=== PATIENT | male | born 1930 | race Caucasian/White ===

== ENCOUNTER 2019-02-16 18:55 | Inpatient (IN) | payer MEDICARE, MEDICAID ==
[2019-02-16] MEDS ORDERED: Magnesium Hydroxide (MOM) 30 mL UDC PO PRN (21:33)
[2019-02-17] MEDS: INSULIN LISPRO SLIDING SCALE 100 UNITS/ML UNIT SUBQ SCH ×4 (06:45→20:24)
[2019-02-17] MEDS: Pantoprazole 40 mg EC Tab PO SCH (08:55)
[2019-02-17] MEDS: Multivitamin w/ Minerals Tab PO SCH (08:55)
[2019-02-17] MEDS: Ferrous Sulfate 325 MG TAB PO SCH ×2 (08:55→17:17)
[2019-02-17] MEDS: Calcium Carb/Vit D 500 mg/200 U Tab PO SCH (08:56)
[2019-02-17] MEDS ORDERED: Epoetin Alfa 20000 Units/mL Vial SUBQ SCH (15:00)
--- NOTE | 2019-02-17 20:55 | Consultation ---
DATE OF CONSULTATION: 02/17/2019 INTERNAL MEDICINE CONSULTATION HISTORY OF PRESENT ILLNESS: An 88-year-old male seen at [facility]. The patient is a patient of mine from [facility]. CURRENT MEDICAL PROBLEMS: Include diabetes mellitus, diabetic angiopathy, neuropathy, nephropathy, hypertension, coronary artery disease non-pneumatic, aortic stenosis, enlarged prostate, peptic ulcer disease, gastritis, arthritis. SOCIAL HISTORY: No history of smoking or alcohol abuse. FAMILY HISTORY: Not available. REVIEW OF SYSTEMS: The patient has no chest pain, no shortness of breath, no nausea, no vomiting. Blood sugars are fairly stable. PHYSICAL EXAMINATION: VITAL SIGNS: Stable. LUNGS: Clear. HEART: First and second present. ABDOMEN: Soft. Bowel sounds present. EXTREMITIES: Show arthritis. NEUROLOGIC: The patient has advanced psychosis and dementia. Psych consult reviewed. LABORATORY DATA: Reviewed. MEDICINES: Reviewed. PLAN: Continue current medical management. [facility]# [id number]
[2019-02-17] MEDS: Atorvastatin Calcium 10 MG TAB PO SCH (21:29)
[2019-02-18] MEDS: INSULIN LISPRO SLIDING SCALE 100 UNITS/ML UNIT SUBQ SCH ×4 (07:01→21:00)
[2019-02-18] MEDS: Calcium Carb/Vit D 500 mg/200 U Tab PO SCH (08:43)
[2019-02-18] MEDS: Ferrous Sulfate 325 MG TAB PO SCH ×2 (08:43→17:27)
[2019-02-18] MEDS: Multivitamin w/ Minerals Tab PO SCH (08:44)
[2019-02-18] MEDS: Pantoprazole 40 mg EC Tab PO SCH (08:44)
--- NOTE | 2019-02-18 18:37 | Progress Notes ---
DATE: 02/18/2019 INTERNAL MEDICINE CONSULTATION FOLLOWUP CURRENT MEDICAL PROBLEMS: Include diabetes mellitus, diabetic angiopathy, neuropathy, nephropathy, hypertension, coronary artery disease, peptic ulcer disease, gastritis, arthritis, enlarged prostate. CHIEF COMPLAINT: No new symptoms. OBJECTIVE: VITAL SIGNS: Stable. LUNGS: Clear. HEART: First and second present. ABDOMEN: Soft. Bowel sound present. EXTREMITIES: Show arthritis. NEUROLOGIC: The patient has no focal deficit. Blood sugars are stable. Psych consult reviewed. MEDICAL DIAGNOSIS: As I dictated above. PLAN: Continue current medical management. JOB# [id number]
[2019-02-18] MEDS: Atorvastatin Calcium 10 MG TAB PO SCH (21:15)
--- NOTE | 2019-02-18 21:41 | Psychiatric Evaluation ---
DATE OF SERVICE: 02/18/2019 IDENTIFYING DATA: The patient is an 88-year-old male, resident of [facility] in [place]. Information obtained by directly interviewing the patient as well as reviewing the admission papers and they are reliable. JUSTIFICATION OF HOSPITALIZATION: The patient is admitted here for on a voluntary basis in view of his acute agitation and aggressive behavior. CHIEF COMPLAINT: "I do not want to talk to anyone." HISTORY OF PRESENT ILLNESS: This patient has been admitted on 02/16/2019. I tried to talk to him with the help of a Kinyarwanda speaking molding machine setter, but the patient has been very agitated and does not want to say much, tried to reach the son to get some more information, but the psychiatric evaluation was not completed on 02/17/2019 following the admission and I have to re-evaluate the patient on 02/18/2019. During the evaluation, the patient is less irritable, but is stating that there is no reason for him to be in here. He could not feed it out why he has to be here. The patient has been primarily Kinyarwanda speaking. The patient has been mentioning that he has been hearing voices that are bothering him. The patient is stating that the sleep was so-so last night. Appetite is noted to be fair. The patient is as per the information has been resisting care and has been wandering and has been removing to [employer]. The patient is getting agitated when staff from going out of the facility. The patient has been refusing any treatment and he could not be maintained at a lower level of care at the facility and hence the patient has been transferred over here for further stabilization. The patient is reluctant to give any information. The patient is not on any psychotropic medication at this time. PAST PSYCHIATRIC HISTORY: None. MEDICAL HISTORY: Physical examination is requested to be done by Dr. Escobedo and is noted significant for diabetes mellitus, hypertension, and the patient has BPH, anemia and history of coronary artery bypass graft. SUBSTANCE ABUSE HISTORY: None. SOCIAL HISTORY: The patient is a resident of the [facility]. 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 SUBSTANCE ABUSE HISTORY: There is no history of alcohol abuse. PHYSICAL OR SEXUAL ABUSE HISTORY: None. MENTAL STATUS EXAMINATION: The patient is an 88-year-old, looking his stated age, superficially cooperative. Eye contact is fair. Mood is noted to be irritable. Affect is constricted. Insight and judgment at this time are noted to be still impaired. Impulse control is noted to be limited. Coping skills are noted to be limited. The patient has been having difficult time to cope with the stress. The patient has been getting easily irritable, angry, and upset when I am asking the questions. The patient is stating there is nothing wrong with him and he does not want to be here and does not want to answer the questions. The patient has both short-term as well as long-term memory deficits. The patient's insight and judgment at this time are noted to be still impaired. Impulse control seems to be limited. The patient is hard to be redirectable at this time. The patient's short and long-term memory are noted to be very poor. The patient's behavior is strictly danger to self and others. The patient is reported to have been wandering off from the facility and the patient is trying to take the [employer] out. DIAGNOSES: AXIS I: Dementia with delusional behavior. AXIS II: None. AXIS III: As per Dr. Escobedo. IMMEDIATE TREATMENT PLAN: The patient is going to be observed on the inpatient unit, provided with supportive psychotherapy. The patient is going to be closely monitored. Once stabilized, the patient is going to be discharged to [facility] to be followed up on an outpatient basis. ESTIMATED LENGTH OF STAY: 3-5 days. DISCHARGE CRITERIA: When the patient is no longer a threat to self or others and be able to cope up with the stress. JOB# [id number]
[2019-02-19] MEDS: INSULIN LISPRO SLIDING SCALE 100 UNITS/ML UNIT SUBQ SCH ×4 (06:52→21:17)
[2019-02-19] MEDS: Pantoprazole 40 mg EC Tab PO SCH (09:09)
[2019-02-19] MEDS: Ferrous Sulfate 325 MG TAB PO SCH ×2 (09:10→18:12)
[2019-02-19] MEDS: Calcium Carb/Vit D 500 mg/200 U Tab PO SCH (09:10)
[2019-02-19] MEDS: Multivitamin w/ Minerals Tab PO SCH (09:12)
[2019-02-19] MEDS: Atorvastatin Calcium 10 MG TAB PO SCH (21:15)
[2019-02-20] MEDS: INSULIN LISPRO SLIDING SCALE 100 UNITS/ML UNIT SUBQ SCH ×4 (06:34→20:59)
[2019-02-20] MEDS: Ferrous Sulfate 325 MG TAB PO SCH ×2 (08:46→17:18)
[2019-02-20] MEDS: Calcium Carb/Vit D 500 mg/200 U Tab PO SCH (08:46)
[2019-02-20] MEDS: Multivitamin w/ Minerals Tab PO SCH (08:46)
[2019-02-20] MEDS: Pantoprazole 40 mg EC Tab PO SCH (08:47)
[2019-02-20] MEDS ORDERED: EPOGEN SUBQ SCH (15:00)
[2019-02-20] MEDS: Atorvastatin Calcium 10 MG TAB PO SCH (20:57)
[2019-02-21] MEDS: INSULIN LISPRO SLIDING SCALE 100 UNITS/ML UNIT SUBQ SCH ×4 (06:42→20:38)
[2019-02-21] MEDS: Calcium Carb/Vit D 500 mg/200 U Tab PO SCH (09:58)
[2019-02-21] MEDS: Ferrous Sulfate 325 MG TAB PO SCH ×2 (09:58→17:12)
[2019-02-21] MEDS: Multivitamin w/ Minerals Tab PO SCH (09:59)
[2019-02-21] MEDS: Pantoprazole 40 mg EC Tab PO SCH (09:59)
[2019-02-21] MEDS ORDERED: Escitalopram Oxalate 5 mg Tab PO ONE (10:45)
[2019-02-21] MEDS ORDERED: Ferrous Sulfate 325 MG TAB PO SCH (17:00)
[2019-02-21] MEDS: Atorvastatin Calcium 10 MG TAB PO SCH (20:37)
[2019-02-22] MEDS: INSULIN LISPRO SLIDING SCALE 100 UNITS/ML UNIT SUBQ SCH ×4 (06:42→21:46)
[2019-02-22] MEDS: Multivitamin w/ Minerals Tab PO SCH (08:23)
[2019-02-22] MEDS: Ferrous Sulfate 325 MG TAB PO SCH ×2 (08:23→16:49)
[2019-02-22] MEDS: Calcium Carb/Vit D 500 mg/200 U Tab PO SCH (08:23)
[2019-02-22] MEDS: Pantoprazole 40 mg EC Tab PO SCH (08:23)
[2019-02-22] MEDS: Escitalopram Oxalate 5 mg Tab PO SCH (08:24)
[2019-02-22] MEDS: Atorvastatin Calcium 10 MG TAB PO SCH (21:39)
[2019-02-23] MEDS: INSULIN LISPRO SLIDING SCALE 100 UNITS/ML UNIT SUBQ SCH ×4 (06:53→21:52)
[2019-02-23] MEDS: Calcium Carb/Vit D 500 mg/200 U Tab PO SCH (09:10)
[2019-02-23] MEDS: Escitalopram Oxalate 5 mg Tab PO SCH (09:11)
[2019-02-23] MEDS: Ferrous Sulfate 325 MG TAB PO SCH ×2 (09:12→16:30)
[2019-02-23] MEDS: Multivitamin w/ Minerals Tab PO SCH (09:13)
[2019-02-23] MEDS: Pantoprazole 40 mg EC Tab PO SCH (09:13)
[2019-02-23] MEDS: Atorvastatin Calcium 10 MG TAB PO SCH (21:51)
[2019-02-24] MEDS: INSULIN LISPRO SLIDING SCALE 100 UNITS/ML UNIT SUBQ SCH ×2 (06:56→11:39)
[2019-02-24] MEDS: Escitalopram Oxalate 5 mg Tab PO SCH (08:57)
[2019-02-24] MEDS: Ferrous Sulfate 325 MG TAB PO SCH (08:58)
[2019-02-24] MEDS: Calcium Carb/Vit D 500 mg/200 U Tab PO SCH (08:58)
[2019-02-24] MEDS: Multivitamin w/ Minerals Tab PO SCH (08:58)
[2019-02-24] MEDS: Pantoprazole 40 mg EC Tab PO SCH (08:58)
--- NOTE | 2019-02-26 20:34 | Progress Notes ---
DATE: 02/20/2019 SUBJECTIVE: Staff was spoken to. The patient is interviewed. Mood is noted to be irritable. Affect is constricted. The patient is stating that he is feeling frustrated and depressed for being in here and does not know what is going on with him. The patient's coping skills are noted to be poor at this time. The patient is stating that he is getting much more depressed and the patient is stating that he is sleeping alright. There is no reason for him to be on any sleeping medications. In view of the depression, it is decided to start the patient on low dose of Lexapro, which is going to be started at 5 mg and follow. The patient is going to be followed up with supportive therapy. JOB# [id number]
--- NOTE | 2019-02-26 20:34 | Progress Notes ---
DATE: 02/23/2019 PSYCHIATRIC PROGRESS NOTE SUBJECTIVE: Staff was spoken to. The patient is interviewed. Mood is noted to be anxious. The patient is not aggressive. The patient's insight and judgment are noted to be improving. Impulse control seems to be fair. No side effects to the medications are noted. The patient has not been able to participate in the groups. The patient is in his bed most of the time. No major behavioral problems are noted at this time. business systems manager has been requested to talk to the facility to see if we can discharge the patient possibly tomorrow for continuation of his treatment on an outpatient basis. The patient is currently on Lexapro and is able to tolerate. JOB# [id number]
--- NOTE | 2019-02-26 20:34 | Progress Notes ---
DATE: 02/19/2019 INTERNAL MEDICINE CONSULTATION FOLLOWUP The patient is 88-year-old male seen at [facility] on 02/19/2019. CURRENT MEDICAL PROBLEMS: Include diabetes mellitus, diabetic angiopathy, neuropathy, hypertension, coronary artery disease, peptic ulcer disease, gastritis, arthritis, enlarged prostate. CHIEF COMPLAINT: No new symptoms. Blood sugars are stable. OBJECTIVE: VITAL SIGNS: Stable. LUNGS: Clear. HEART: First and second normal. ABDOMEN: Soft. Bowel sounds present and good. EXTREMITIES: Show arthritis. NEUROLOGIC: The patient has advanced psychosis. Psych consult reviewed. Nursing records reviewed. PLAN: Continue current medical management. JOB# [id number]
--- NOTE | 2019-02-26 20:34 | Progress Notes ---
DATE: 02/21/2019 SUBJECTIVE: Staff was spoken to. The patient is interviewed. Mood is noted to be depressed. Affect is constricted. The patient is isolative and withdrawn. The patient's coping skills are noted to be still poor. Insight and judgment are noted to be improving. No side effects to the Lexapro are noted. The patient has been still keeping a low profile and no major behavioral problems as well as walking out of the unit. The patient has been compliant with the medications so far. manager medical writing has been requested to arrange a family session with the patient. ASSESSMENT: The patient is still depressed. PLAN: To continue the patient with the current medications. I encouraged the patient to verbalize the concerns rather than to act out. [facility]# [id number]
--- NOTE | 2019-02-26 20:34 | Progress Notes ---
DATE: 02/20/2019 INTERNAL MEDICINE CONSULTATION FOLLOWUP SUBJECTIVE: The patient is an 88-year-old male, a patient of mine. CURRENT MEDICAL PROBLEMS: Include diabetes mellitus, diabetic angiopathy, neuropathy, hypertension, coronary artery disease, enlarged prostate, peptic ulcer disease, gastritis, arthritis. CHIEF COMPLAINT: No new symptoms. Blood sugars are stable. OBJECTIVE: LUNGS: Clear. HEART: First and second normal. ABDOMEN: Soft. Bowel sounds present. EXTREMITIES: Show arthritis. NEUROLOGIC: The patient has dementia. Psych consult reviewed. PLAN: Continue current medical management. JOB# [id number]
--- NOTE | 2019-02-26 20:34 | Progress Notes ---
DATE: 02/23/2019 INTERNAL MEDICINE CONSULTATION SUBJECTIVE: The patient is an 88-year-old male. CURRENT MEDICAL PROBLEMS: Include diabetes mellitus type 2, angiopathy, neuropathy, hypertension, coronary artery disease, peptic ulcer disease, gastritis, arthritis, enlarged prostate. No new symptoms. Blood sugars are stable. OBJECTIVE: VITAL SIGNS: Stable. LUNGS: Clear. HEART: First and second heart sounds normal. ABDOMEN: Soft. Bowel sounds present. EXTREMITIES: Show arthritis. NEUROLOGIC: The patient has no additional focal deficit. Psych consult reviewed. Continue current medical management. JOB# [id number]
--- NOTE | 2019-02-26 20:34 | Progress Notes ---
DATE: 02/19/2019 SUBJECTIVE: Staff was spoken to. The patient is interviewed. Mood is noted to be anxious. The patient's insight and judgment are noted to be fair at this time. Impulse control is noted to be fair so far and the patient has paranoia, but denies any command hallucinations. The patient is stating that he could not figure it out why they had to bring him in here and the patient is getting easily irritable. The patient is also reported to have been having problems with the impulse control and has been wandering off. At this time, the patient is being closely monitored. No side effects to the medications are noted. In view of his paranoia, I have decided to start the patient on low dose of Seroquel and follow the patient up with supportive therapy. JOB# [id number]
--- NOTE | 2019-02-26 20:34 | Progress Notes ---
DATE: 02/22/2019 SUBJECTIVE: Staff was spoken to. The patient is interviewed. Mood is noted to be less irritable. Affect is appropriate. The patient has been isolative and withdrawn. The patient's coping skills at this time are noted to be still limited. The patient's blood sugar is running still very high. The patient is being closely monitored. The patient has been on insulin on a sliding scale. The patient is also getting the Lexapro 5 mg for his depression and the patient has been able to tolerate. No side effects to medications are noted. ASSESSMENT: The patient is depressed, still. PLAN: To continue the patient with the supportive therapy and work with the classification case manager with regard communicating with the facility to see if they will be accepting the patient when the patient is stabilized. JOB# [id number]
--- NOTE | 2019-02-26 20:34 | Progress Notes ---
DATE: 02/22/2019 INTERNAL MEDICINE CONSULTATION FOLLOWUP SUBJECTIVE: The patient is an 88-year-old male, currently in [facility]. Medical problems include diabetes mellitus, diabetic angiopathy, neuropathy, hypertension, coronary artery disease, enlarged prostate, peptic ulcer disease, gastritis, arthritis. Blood sugars are reviewed. OBJECTIVE: VITAL SIGNS: Stable. LUNGS: Clear. HEART: First and second heart sounds normal. ABDOMEN: Soft. Bowel sounds are present and good. EXTREMITIES: Show arthritis. NEUROLOGIC: The patient has dementia. Psych consult reviewed. Continue current medical management. JOB# [id number]
--- NOTE | 2019-02-26 20:35 | Progress Notes ---
DATE: 02/24/2019 SUBJECTIVE: Staff was spoken to. The patient is interviewed. Mood is noted to be anxious. Affect is appropriate. The patient is not suicidal or homicidal. Insight and judgment are noted to be improving. Impulse control seems to be fair. No side effects to the medications are noted. The patient is willing to comply with the treatment. No aggressive behavior is noted. The patient has not tried to AWOL from the unit. The patient at this time is not presenting as a threat to self or others. PLAN: To discharge the patient back to the senior care facility for further followup. JOB# [id number]
--- NOTE | 2019-02-26 20:35 | Progress Notes ---
DATE: 02/24/2019 MEDICAL FOLLOWUP EXAM SUBJECTIVE: The patient is an 88-year-old male. CURRENT MEDICAL PROBLEMS: Include diabetes mellitus, diabetic angiopathy, neuropathy, nephropathy, hypertension, enlarged prostate, peptic ulcer disease, gastritis, arthritis, osteoporosis. OBJECTIVE: VITAL SIGNS: Stable. LUNGS: Clear. HEART: First and second present. ABDOMEN: Soft. Bowel sounds present. EXTREMITIES: Show arthritis. NEUROLOGIC: The patient has dementia. PLAN: Psych consult reviewed. The patient will be discharged back to [facility] today. Clinically stable. We will follow all the medicines. JOB# [id number]
== END 2019-02-24 14:02 | DRG 884 ==
LOC: GERO 18:55
PROVIDERS: ADMIT Psychiatry & Neurology Psychiatry; ATTEND Psychiatry & Neurology Psychiatry
DX: F03.91 Unspecified dementia, unspecified severity, with behavioral disturbance (principal); F29 Unspecified psychosis not due to a substance or known physiological condition; I10 Essential (primary) hypertension; I25.10 Atherosclerotic heart disease of native coronary artery without angina pectoris; M19.90 Unspecified osteoarthritis, unspecified site; E11.40 Type 2 diabetes mellitus with diabetic neuropathy, unspecified; E11.21 Type 2 diabetes mellitus with diabetic nephropathy; K27.9 Peptic ulcer, site unspecified, unspecified as acute or chronic, without hemorrhage or perforation; I35.0 Nonrheumatic aortic (valve) stenosis; N40.0 Benign prostatic hyperplasia without lower urinary tract symptoms; M81.0 Age-related osteoporosis without current pathological fracture; K29.70 Gastritis, unspecified, without bleeding; E11.51 Type 2 diabetes mellitus with diabetic peripheral angiopathy without gangrene; Z95.1 Presence of aortocoronary bypass graft
CPT/HCPCS: 82948-90; 83036-90; 97530; J0885; X3904; Z7610